=== PATIENT | male | born 1990 | race Two or more races ===

== ENCOUNTER 2019-09-27 16:00 | Emergency (ER) | payer OTHER ==
[~2019-09-27] VITALS: Ht 180.3 cm; Wt 145.1 kg
[~2019-09-27 16:00] MED LIST: INTESTINEX1 CAP PO; ZANTAC150 M3 PO
== END 2019-09-27 19:21 | disposition home or self-care (01) ==
LOC: ER 16:00
DX: T78.1XXA Other adverse food reactions, not elsewhere classified, initial encounter (principal); R21 Rash and other nonspecific skin eruption

== ENCOUNTER → 2020-09-12 07:22 | Outpatient (CLI) | payer OTHER | END | disposition home or self-care (01) | LOC: LAB 07:22 | DX: E56.8 Deficiency of other vitamins (principal); E66.01 Morbid (severe) obesity due to excess calories; Z98.84 Bariatric surgery status; E53.8 Deficiency of other specified B group vitamins; E55.9 Vitamin D deficiency, unspecified; R73.09 Other abnormal glucose; K76.0 Fatty (change of) liver, not elsewhere classified ==

== ENCOUNTER 2021-07-10 06:57 | Outpatient (CLI) | payer OTHER | END 2021-07-10 06:58 | disposition home or self-care (01) | LOC: LAB 06:57 | DX: E66.01 Morbid (severe) obesity due to excess calories (principal); Z98.84 Bariatric surgery status; E56.8 Deficiency of other vitamins; E53.9 Vitamin B deficiency, unspecified; R73.09 Other abnormal glucose ==

== ENCOUNTER 2022-02-20 10:12 | Outpatient (CLI) | payer OTHER | END 2022-02-20 10:17 | disposition home or self-care (01) | LOC: LAB 10:12 | DX: E66.01 Morbid (severe) obesity due to excess calories (principal); Z98.84 Bariatric surgery status; E56.8 Deficiency of other vitamins; E53.9 Vitamin B deficiency, unspecified; E55.9 Vitamin D deficiency, unspecified; R73.09 Other abnormal glucose ==